=== PATIENT | female | born 1970 | race Two or more races ===

== ENCOUNTER 2022-07-15 05:10 | Inpatient (IN) | payer OTHER ==
[~2022-07-15] VITALS: Ht 160 cm; Wt 74.8 kg
[~2022-07-15 05:10] MED LIST: ALDACTAZIDE 251 EACH PO; ATORVASTATIN CA10 MG PO; GABAPENTIN; LISINOPRIL20 MG PO
[2022-07-15] MEDS ORDERED: COLACE100 MG PO (07:26)
[2022-07-15] MEDS ORDERED: NEURONTIN800 MG PO (07:27)
[2022-07-15] MEDS ORDERED: AMOX-CLAV 875-1 EACH PO (07:27)
[2022-07-15] MEDS ORDERED: MEDROLPACK PO (07:27)
[2022-07-15] MEDS ORDERED: PERCOCET 5-3251 EACH PO (07:27)
== END 2022-07-16 10:27 | disposition home or self-care (01) | DRG 520 ==
LOC: CIR.AMB 05:10 → EDSTATUS 12:00 → CIR.AMB 12:00 → SURH 12:00 → O/R 12:42 → SURH 14:44
PROVIDERS: ADMIT Orthopaedic Surgery Orthopaedic Surgery of the Spine; ATTEND Orthopaedic Surgery Orthopaedic Surgery of the Spine
PROC: 01NB0ZZ Release Lumbar Nerve, Open Approach (ICD-10-PCS; 2022-07-15)
PROC: 0SB20ZZ Excision of Lumbar Vertebral Disc, Open Approach (ICD-10-PCS; principal; 2022-07-15 07:00)
DX: M48.062 Spinal stenosis, lumbar region with neurogenic claudication (principal); M54.16 Radiculopathy, lumbar region; I10 Essential (primary) hypertension